=== PATIENT | male | born 1950 | race Caucasian/White ===

== ENCOUNTER 2016-06-12 07:39 | Day surgery (SDC) | payer BC ==
[~2016-06-12] VITALS: Ht 165.1 cm; Wt 82.3 kg
[~2016-06-12 07:39] MED LIST: CENTRUM SILVER1 EAC5 PO; COREG12.5 M1 PO; DEXILANT60 MG PO; FLOMAX0.4 MG PO; ISOSORBIDE MONO30 MG PO; LAMICTAL200 MG PO; LEVO-T75 MCG PO; LOFIBRA,TRIGLI160 MG PO; LOW DOSE ASPIRI81 M1 PO; NEURONTIN100 MG PO; PLAVIX75 MG PO; PRAVACHOL80 MG PO; PRINIVIL10 MG PO; PRINIVIL5 MG PO; SEROQUEL200 MG PO; SINEMET 25-1001 EACH PO; SINEMET CR 25-1 EACH PO; TOUJEO SOL300 UNIT/1 SC; VITAMIN E400 UNI6 PO; WELCHOL625 MG PO; WELLBUTRIN SR150 MG PO; WELLBUTRIN XL300 MG PO
[2016-06-12 08:16] LABS: POINT-OF-CARE METER ID UU14174212
[2016-06-12 08:20] VITALS: BP 100/61
[2016-06-12 15:10] LABS: POINT-OF-CARE METER ID UU13113675
[2016-06-12 20:00] VITALS: BP 139/83
[2016-06-12 20:38] VITALS: BP 139/83
[2016-06-12 21:46] LABS: POINT-OF-CARE METER ID UU14149397
[2016-06-12 23:19] VITALS: BP 122/80
[2016-06-13 04:18] VITALS: BP 104/62
[2016-06-13 07:36] LABS: POINT-OF-CARE METER ID UU14149397
[2016-06-13 07:37] VITALS: BP 135/70
[2016-06-13 11:37] VITALS: BP 126/73
[2016-06-13] MEDS ORDERED: PERCOCET 5/31 TABLET PO (12:56)
[2016-06-13] MEDS ORDERED: BACLOFEN10 MG PO (13:05)
== END 2016-06-13 13:50 | disposition home or self-care (01) ==
LOC: SDC 07:39 → 2SOUTH 14:35 → 3EAST 14:35 → SDC 15:10 → 3EAST 19:51
PROVIDERS: Neurological Surgery
PROC: 0SB20ZZ Excision of Lumbar Vertebral Disc, Open Approach (ICD-10-PCS; principal; 2016-06-12)
DX: M51.16 Intervertebral disc disorders with radiculopathy, lumbar region (principal); M79.605 Pain in left leg; Z86.73 Personal history of transient ischemic attack (TIA), and cerebral infarction without residual deficits; J45.909 Unspecified asthma, uncomplicated; Z79.01 Long term (current) use of anticoagulants; M47.9 Spondylosis, unspecified; G20 Parkinson's disease; I10 Essential (primary) hypertension; E78.5 Hyperlipidemia, unspecified; E11.9 Type 2 diabetes mellitus without complications; G47.30 Sleep apnea, unspecified; Z98.1 Arthrodesis status; Z88.5 Allergy status to narcotic agent
CPT/HCPCS: 72020; 76000; 82948; 93005; G0378; J0330; J0690; J1100; J1170; J2405; J2710; J3010; J3480; S0020

== ENCOUNTER 2016-11-23 20:19 | Emergency (ER) | payer BC ==
[~2016-11-23] VITALS: Ht 165.1 cm; Wt 73.1 kg
[~2016-11-23 20:19] MED LIST changes: +BACLOFEN10 MG PO; +PERCOCET 5/31 TABLET PO
[2016-11-23 21:11] LABS: HEMATOCRIT 43.3 % (38.0-50.0); MCH 31.4 PG (29.0-34.0); MCHC 34.2 G/DL (30.0-36.0); MCV 91.9 FL (86-99); MEAN PLAT.VOLUME 9.5 uM^3 (9.0-12.4); PLATELET COUNT 162 K/uL (156-360); RBC DIS.WIDTH-CV 12.4 % (11.8-14.6); RBC DIS.WIDTH-SD 42.2 % (39-53); RED BLOOD COUNT 4.71 M/uL (4.00-5.50); WHITE BLOOD COUNT 5.2 K/uL (4.1-10.2)
[2016-11-23 21:22] LABS: CHLORIDE 102 mEq/L (99-109); POTASSIUM 4.1 mEq/L (3.7-5.4); SODIUM 136 mEq/L (136-147)
[2016-11-23 21:25] LABS: ANION GAP 8 MEQ/L (2-14)
[2016-11-23 21:26] LABS: TOTAL BILIRUBIN 0.4 mg/dL (0.0-1.0)
[2016-11-23 21:27] LABS: ALKALINE PHOSPHATASE 67 IU/L (3-129); GLUCOSE 150 mg/dL (70-99)
[2016-11-23 21:28] LABS: GFR ESTIMATE (CALCULATED) > 59 mL/min/
[2016-11-23 21:29] LABS: UREA NITROGEN (BUN) 14 mg/dL (9-23)
[2016-11-23] MEDS ORDERED: CLARITIN10 M3 PO (21:45)
[2016-11-23 22:18] VITALS: BP 135/74
== END 2016-11-23 23:04 ==
LOC: EME 20:19
PROVIDERS: Emergency Medicine
DX: T78.40XA Allergy, unspecified, initial encounter (principal); J45.909 Unspecified asthma, uncomplicated; I10 Essential (primary) hypertension; E11.9 Type 2 diabetes mellitus without complications; Z86.73 Personal history of transient ischemic attack (TIA), and cerebral infarction without residual deficits; K21.9 Gastro-esophageal reflux disease without esophagitis; F03.90 Unspecified dementia, unspecified severity, without behavioral disturbance, psychotic disturbance, mood disturbance, and anxiety; Z87.442 Personal history of urinary calculi; Z87.891 Personal history of nicotine dependence; Z79.82 Long term (current) use of aspirin; Z79.02 Long term (current) use of antithrombotics/antiplatelets; Z79.4 Long term (current) use of insulin
CPT/HCPCS: 80053; 85027; 99281; 99285; J1200; J2930